=== PATIENT | female | born 1985 | race Hispanic/Latino ===

== ENCOUNTER 2022-11-13 18:02 | Emergency (ER) | payer BC ==
[~2022-11-13] VITALS: Ht 160 cm; Wt 54.9 kg
[2022-11-13] MEDS ORDERED: BENZ200C53 PO (19:39)
[2022-11-13] MEDS ORDERED: FLUT16H NASAL (19:39)
[2022-11-13] MEDS ORDERED: D-ME118S47 PO (19:39)
[2022-11-13] MEDS ORDERED: AZIT250T9 PO (19:39)
[2022-11-13 19:56] VITALS: BP 115/80
[2022-11-13] MEDS ORDERED: DEXAMETHASONE SOD PHOSPHATE 4 MG/ML 1ML VIAL IM SCH (20:00)
== END 2022-11-13 20:04 | disposition home or self-care (01) ==
LOC: EDH 18:02
DX: J01.90 Acute sinusitis, unspecified (principal); E03.9 Hypothyroidism, unspecified; Z20.822 Contact with and (suspected) exposure to COVID-19
CPT/HCPCS: 99283; 71045; 87635; 87804 ×2; 96372; J1100; C9803

== ENCOUNTER 2024-01-12 13:25 | Emergency (ER) | payer BC, OTHER ==
[~2024-01-12] VITALS: Ht 160 cm; Wt 51.7 kg
[~2024-01-12 13:25] MED LIST: AZIT250T9 PO; BENZ200C53 PO; BROM118S48 PO; FLUT16H NASAL
[2024-01-12 13:51] LABS: BASOPHILS # (AUTO) 0.05 K/uL (0.00-0.20); BASOPHILS % (AUTO) 0.5 % (0.0-5.0); EOSINOPHILS % (AUTO) 1.1 % (0.0-8.0); HEMATOCRIT 36.7 % (36-48); IMMATURE GRANULOCYTE ABSOLUTE 0.04 K/uL (0-1); LYMPHOCYTES % (AUTO) 32.2 % (21.0-51.0); MEAN CORPUSCULAR HEMOGLOBIN 29.7 pg (27.0-33.0); MEAN CORPUSCULAR HGB CONC 35.1 g/dL (32.0-36.0); MEAN CORPUSCULAR VOLUME 84.4 fL (79-99); MONOCYTES # (AUTO) 0.5 K/uL (0.1-1.0); MONOCYTES % (AUTO) 5.6 % (3.0-13.0); NEUTROPHILS # (AUTO) 5.6 K/uL (1.8-7.7); NEUTROPHILS % (AUTO) 60.2 % (40.0-77.0); PLATELET COUNT (AUTO) 402 K/uL (130-400); RED BLOOD CELL COUNT(AUTO) 4.35 MIL/uL (4.00-5.50); RED CELL DISTRIBUTION WIDTH 12.8 % (11.0-15.5); WHITE BLOOD COUNT (AUTO) 9.3 K/uL (4.8-10.8)
[2024-01-12 14:04] LABS: CREATININE 0.8 mg/dL (0.5-1.0); POTASSIUM 3.8 mmol/L (3.5-5.1)
== END 2024-01-12 16:14 | disposition home or self-care (01) ==
LOC: EDH 13:25
DX: R55 Syncope and collapse (principal); E03.9 Hypothyroidism, unspecified; F41.9 Anxiety disorder, unspecified; Z79.899 Other long term (current) drug therapy; Z98.890 Other specified postprocedural states
CPT/HCPCS: 36415; 80048; 84703; 85025